=== PATIENT | female | born 1965 | race Caucasian/White ===

== ENCOUNTER 2017-07-03 16:14 | Emergency (ER) | payer OTHER ==
[~2017-07-03] VITALS: Ht 152.4 cm; Wt 57.1 kg
[~2017-07-03 16:14] MED LIST: IRON; VITB12I
[2017-07-03 16:31] VITALS: Ht 152.4 cm; Wt 57.1 kg
[2017-07-03 17:20] LABS: BASOPHIL % 0.3 % (0-2); PLATELET COUNT 289 x10^3mcL (130-400)
[2017-07-03 17:23] LABS: RED CELL DISTRIBUTION WIDTH 21.2 % (11.5-14.5)
[2017-07-03 17:47] LABS: rbc morphology (normal/abnorm) ABNORMAL (NORMAL)
[2017-07-03 17:48] LABS: ovalocyte/elliptocyte 2+; tear drop cell (dacryocyte) 1+
[2017-07-03 18:18] VITALS: BP 121/89
== END 2017-07-03 18:18 | disposition home or self-care (01) ==
LOC: ED 16:14
DX: J06.9 Acute upper respiratory infection, unspecified (principal); D64.9 Anemia, unspecified
CPT/HCPCS: 36415

== ENCOUNTER 2019-04-21 20:06 | Emergency (ER) | payer OTHER ==
[~2019-04-21] VITALS: Ht 154.9 cm; Wt 54.4 kg
[2019-04-21 20:14] VITALS: Ht 154.9 cm; Wt 54.4 kg
[2019-04-21 22:02] VITALS: BP 128/71
== END 2019-04-21 21:45 | disposition home or self-care (01) ==
LOC: ED 20:06
DX: L27.0 Generalized skin eruption due to drugs and medicaments taken internally (principal); T37.8X5A Adverse effect of other specified systemic anti-infectives and antiparasitics, initial encounter; Y92.89 Other specified places as the place of occurrence of the external cause